=== PATIENT | male | born 1975 | race Caucasian/White ===

== ENCOUNTER 2025-01-07 19:34 | Emergency (ER) | payer OTHER ==
[2025-01-07 20:24] LABS: Glucose, Urine (Dipstick) Normal (Negative); Leukocyte Negative (Negative); Protein, Urine (Dipstick) Negative (Neg-Trace); Specific Gravity, Urine 1.025 (1.005-1.030)
[2025-01-07 20:33] LABS: Cocaine Metabolite Screen Negative (Negative); THC/Cannabinoid Screen PRELIM POSITIVE (Negative); Tricyclic Screen Negative (Negative)
[2025-01-07 20:39] LABS: Bacteria/HPF Rare-Few HPF (None Seen); CAUTI Indications for Culture Pelvic or flank pain; RBC/HPF None Seen HPF (0-3); Urine Culture Reflex No No; WBC/HPF None Seen HPF (0-3)
[2025-01-07 20:42] LABS: #Basophils 0.08 10x3/uL (0.0-0.2); #Eosinophils 0.03 10x3/uL (0.0-0.5); #Monocytes 0.33 10x3/uL (0.0-1.1); #Neutrophils 4.14 10x3/uL (1.5-8.4); %Basophils 1.2 % (0.0-2.0); %Eosinophils 0.4 % (0.0-6.0); %Lymphocytes 32.3 % (18.0-47.0); %Monocytes 4.9 % (0.0-10.0); %Neutrophils 61.1 % (40.0-75.0); Hematocrit 42.1 % (38.8-50.0); Hemoglobin 14.6 g/dL (13.5-17.5); Mean Corpuscular Hemoglobin 33.1 pg (27.0-33.0); Mean Corpuscular Volume 95.5 fL (81.2-95.1); Platelet Count 343 10x3/uL (150-450); Red Blood Cell (RBC) Count 4.41 10x6/uL (4.32-5.72); White Blood Cell (WBC) Count 6.78 10x3/uL (3.5-10.5)
[2025-01-07 20:56] LABS: ALT (SGPT) 31 U/L (Less than 45); AST (SGOT) 45 U/L (11-34); Acetaminophen Less than 10 mcg/mL (Less than 10); Albumin 4.3 g/dL (3.1-4.5); Alkaline Phosphatase 48 U/L (40-110); Anion Gap 17 mmol/L (10-20); BUN (Urea Nitrogen) 8 mg/dL (8.9-20.6); Bilirubin, Total 0.6 mg/dL (0.3-1.2); Calc. Creatinine Clearance 0 mL/min (70-130); Calcium 9.0 mg/dL (7.8-10.44); Carbon Dioxide 23 mmol/L (22-29); Chloride 109 mmol/L (98-107); Globulin 3.0 g/dL (2.4-3.5); Glucose 111 mg/dL (70-105); Potassium 3.8 mmol/L (3.5-5.1); Salicylate Less than 8.0 mg/dL (Less than 8.0); Sodium 145 mmol/L (136-145)
== END 2025-01-08 06:47 ==
LOC: CSHERS 19:34
DX: S61.512A Laceration without foreign body of left wrist, initial encounter (principal); S61.511A Laceration without foreign body of right wrist, initial encounter; R45.851 Suicidal ideations; F10.129 Alcohol abuse with intoxication, unspecified; F19.10 Other psychoactive substance abuse, uncomplicated; F17.220 Nicotine dependence, chewing tobacco, uncomplicated; W26.8XXA Contact with other sharp object(s), not elsewhere classified, initial encounter; Y90.7 Blood alcohol level of 200-239 mg/100 ml
CPT/HCPCS: 36415; 80053; 80306; 80307; 81001; 85025; 93005